=== PATIENT | female | born 1980 | race Caucasian/White ===

== ENCOUNTER 2025-09-30 15:22 | Emergency (ER) | payer OTHER, SELFPAY ==
[2025-09-30 15:30] VITALS: BP 179/93; PULSE 89; TEMP 37.1; O2SAT 99; BMI 38.7
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
== END 2025-09-30 17:14 | disposition home or self-care (01) ==
PROVIDERS: Emergency Provider Emergency Medicine
DX: S52.501A Unspecified fracture of the lower end of right radius, initial encounter for closed fracture (principal); V49.49XA Driver injured in collision with other motor vehicles in traffic accident, initial encounter
CPT/HCPCS: 73110; 99283